=== PATIENT | male | born 1955 | race Caucasian/White ===

== ENCOUNTER 2021-04-08 07:44 | Emergency (ER) | payer MEDICARE, OTHER ==
[~2021-04-08] VITALS: Ht 172.7 cm; Wt 102.1 kg
[2021-04-08 07:58] VITALS: BP_SYST 154
--- NOTE | 2021-04-08 08:00 | NUR ---
Placed in room [address] recording monitor, blood pressure machine and pulse oximeter. To gown for exam. Side rails up.
--- NOTE | 2021-04-08 08:10 | NUR ---
PT CAME INTO ER C/O INTERMITTANT DIZZINESS WITH SITTING AND STANDING. PT IS ABLE TO WALK WITH A STEADY GAIT, V/S STABLE, [id number]
--- NOTE | 2021-04-08 09:12 | NUR ---
ER AT THE BEDSIDE EXAMINING PT
--- NOTE | 2021-04-08 09:45 | NUR ---
LAB AT THE BEDSIDE FOR BLOOD DRAW
--- NOTE | 2021-04-08 09:47 | NUR ---
Patient transported to radiology via WC, accompanied by STAFF.
[2021-04-08 09:59] LABS: BASOPHILS # (AUTO) 0.1 K/uL (0.0-0.2); BASOPHILS % (AUTO) 0.9 % (0.0-2.0); EOSINOPHILS # (AUTO) 0.1 K/uL (0.0-0.4); EOSINOPHILS % (AUTO) 1.1 % (0.0-4.0); HEMATOCRIT 48.9 % (36-54); HEMOGLOBIN 16.7 g/dL (14.0-18.0); LYMPHOCYTES # (AUTO) 1.6 K/uL (1.0-5.5); LYMPHOCYTES % (AUTO) 16.9 % (20.5-51.5); MEAN CORPUSCULAR HEMOGLOBIN 31 pg (27-31); MEAN CORPUSCULAR HGB CONC 34 % (32-36); MEAN CORPUSCULAR VOLUME 91 fL (79.0-98.0); MONOCYTES # (AUTO) 0.7 K/uL (0.0-1.0); MONOCYTES % (AUTO) 7.5 % (1.7-9.3); NEUTROPHILS # (AUTO) 6.9 K/uL (1.8-7.7); NEUTROPHILS % (AUTO) 73.6 % (40.0-70.0); PLATELET COUNT (AUTO) 197 K/uL (130-430); RED CELL DISTRIBUTION WIDTH 13.4 % (9.0-15.0); WHITE BLOOD COUNT (AUTO) 9.3 K/uL (4.8-10.8)
[2021-04-08 10:10] LABS: CALCIUM 9.5 mg/dL (8.4-11.0); CREATININE 1.09 mg/dL (0.55-1.30); POTASSIUM 4.6 mmol/L (3.5-5.1)
[2021-04-08 10:16] LABS: ALBUMIN 3.9 g/dL (3.4-4.8); TOTAL BILIRUBIN 0.7 mg/dL (0.0-1.0)
--- NOTE | 2021-04-08 10:24 | NUR ---
PT SLEEPING IN GURNEY, NO DISTRESS, V/S STABLE
[2021-04-08] MEDS ORDERED: MECL-160 PO (10:27)
[2021-04-08 10:33] VITALS: BP_SYST 149
--- NOTE | 2021-04-08 10:36 | NUR ---
Patient given written and verbal discharge instructions and verbalizes understanding. ER MD discussed with patient the results and treatment provided. Patient in stable condition. ID arm band removed. Rx of MECLIZINE HCL given. Patient educated on pain management and to follow up with PMD. Pain Scale 0/10. Opportunity for questions provided and answered. Medication side effect fact sheet provided.
== END 2021-04-08 10:33 | disposition home or self-care (01) ==
LOC: SED 07:44
DX: R42 Dizziness and giddiness (principal); Z79.899 Other long term (current) drug therapy
CPT/HCPCS: 36415; 70450-TC; 76376; 80053; 85025; 99284